=== PATIENT | female | born 1965 | race Caucasian/White ===

== ENCOUNTER → 2018-11-09 | Outpatient (CLI) | payer BC ==
--- NOTE | 2018-11-09 18:51 | Diagnostic Imaging Report ---
INDICATION: Right knee pain, twisted right knee 3 weeks ago. TECHNIQUE: 3 views of the right knee. CORRELATION STUDY: None FINDINGS: No acute bony abnormality. There is however rather markedly advanced degenerative change about the knee. This includes joint space narrowing with marginal osteophyte formation particularly laterally. Moderate severity chondrocalcinosis is also present. The articular surfaces appear to be fairly smooth. Mild narrowing of the patellofemoral compartment. Suprapatellar joint effusion appears to be present. Soft tissues are otherwise unremarkable. IMPRESSION: 1. Negative for acute bony abnormality of the knee. Advanced degenerative change about the right knee. This includes significant joint space narrowing with marginal osteophyte formation. If further assessment for intrinsic abnormality of the knee, MRI would be recommended. Dictated by: Dictated on workstation # [id number]
== END ==
LOC: RAD 15:11
PROVIDERS: ATTEND Nurse Practitioner
DX: M17.11 Unilateral primary osteoarthritis, right knee (principal); M25.761 Osteophyte, right knee
CPT/HCPCS: 73562

== ENCOUNTER 2020-10-13 05:54 | Outpatient (CLI) | payer BC ==
[~2020-10-13] VITALS: Ht 170.2 cm; Wt 152.9 kg
[2020-10-13] MEDS ORDERED: PRED10TA22 PO (14:37)
[2020-10-13] MEDS ORDERED: ATOR10TA66 PO (14:37)
[2020-10-13] MEDS ORDERED: METF-397 PO (14:37)
[2020-10-13] MEDS ORDERED: GABA-486 PO (14:37)
[2020-10-13] MEDS ORDERED: FLUT15.845 NS (14:37)
== END 2020-10-14 07:32 | disposition home or self-care (01) ==
LOC: PREOP 05:54
PROVIDERS: ATTEND Surgery
DX: Z01.818 Encounter for other preprocedural examination (principal)

== ENCOUNTER 2020-10-20 09:53 | Day surgery (SDC) | payer BC ==
[~2020-10-20] VITALS: Ht 170.2 cm; Wt 152.9 kg
[~2020-10-20 09:53] MED LIST: ATOR10TA66 PO; FLUT15.845 NS; GABA-486 PO; METF-397 PO; PRED10TA22 PO
[2020-10-20] MEDS ORDERED: LACTATED RINGERS 1,000 ML IV ONE (10:09)
[2020-10-20 10:15] VITALS: BP 118/85
[2020-10-20] MEDS ORDERED: LACTATED RINGERS 1,000 ML IV STA (10:17)
--- NOTE | 2020-10-20 10:21 | Progress Note-Pre Operative ---
Pre-Operative Progress Note H&P Reviewed The H&P was reviewed, patient examined and no changes noted. Time Seen by Provider: 10:20 Date H&P Reviewed: October 20, 2020 Time H&P Reviewed: 10:20 Pre-Operative Diagnosis: + CologCHADD Iverson DO October 20, 2020 10:21
[2020-10-20] MEDS ORDERED: PROPOFOL INJECTION 50 ML IV ONE (10:48)
[2020-10-20] MEDS ORDERED: proPOfol 200 MG/20 ML (DIPRIVAN) VIAL IV ONE (11:20)
[2020-10-20 11:35] VITALS: BP 121/69
[2020-10-20 11:40] VITALS: BP 123/58
--- NOTE | 2020-10-20 11:41 | Anesthesia-General Post-Op ---
MAC Patient Condition Mental Status/LOC: Same as Preop Cardiovascular: Satisfactory Nausea/Vomiting: Absent Respiratory: Satisfactory Pain: Controlled Complications: Absent Post Op Complications Complications None Follow Up Care/Instructions Patient Instructions None needed. Anesthesiology Discharge Order Discharge Order Patient is doing well, no complaints, stable vital signs, no apparent adverse anesthesia problems. No complications reported per nursing. SHAGUFTA ORNELAS CRNA October 20, 2020 11:41
[2020-10-20 11:45] VITALS: BP 123/58
[2020-10-20 12:16] VITALS: BP 130/62
--- NOTE | 2020-10-20 14:43 | Progress Note-Post Operative ---
Post-Operative Progess Note Surgeon (s)/Pleasure Craft Sailor (s) Surgeon CHADD ALBARRAN DO Pleasure Craft Sailor: none Pre-Operative Diagnosis + Cologuard Post-Operative Diagnosis Polyps int hemorrhoids Procedure & Operative Findings Date of Procedure 10/20/20 Procedure Performed/Findings Colon with snare Anesthesia Type IV sedation by DIAMOND BROKER Estimated Blood Loss Estimated blood loss (mL): scant Specimens/Packing Specimens Removed cecal polyp desc colon polyp x 5 Sigmoid polyp rectal polyps CHADD ALBARRAN DO October 20, 2020 14:43
--- NOTE | 2020-10-21 15:53 | OPERATIVE REPORT ---
DATE OF SERVICE: 10/20/2020 PREOPERATIVE DIAGNOSIS: Positive Cologuard. POSTOPERATIVE DIAGNOSES: Multiple colon polyps as well as internal hemorrhoids. PROCEDURE: Colonoscopy with snare polypectomy. SURGEON: Abraham Mathew DO GYMNASTICS COACH OR INSTRUCTOR: None. ANESTHESIA: IV sedation by the HIGHWAY ADMINISTRATIVE ENGINEER. SPECIMEN: Cecal polyp, descending colon polyp x5, sigmoid polyp and questionable rectal polyp. BLOOD LOSS: Scant. FLUIDS: Per anesthesia. POSTOPERATIVE CONDITION: Stable. INDICATION FOR PROCEDURE: The patient is a 55-year-old female, who had a positive Cologuard and needed a workup. FINDINGS: The patient had multiple polyps removed by hot snare and sent to pathology. PROCEDURE NOTE: After informed consent was obtained, the patient was brought to the endoscopy suite, placed in bed in left lateral decubitus position. She was administered IV sedation by the HIGHWAY ADMINISTRATIVE ENGINEER who monitored her vitals the entire time, heart rate, blood pressure and pulse ox and the scope was inserted, pushed all the way into the cecum about 150 cm in able to take a picture of appendiceal orifice, noted some polyps in the way in, elected removal on the way out, found one just outside the ileocecal valve and the cecal cap and did a snare polypectomy of this and then continued up insufflated looking circumferentially at the stewart looking the cecum, up the ascending colon to the hepatic flexure, then down the transverse colon, splenic flexure, into the descending colon. In the descending colon formal found multiple polyps, I elected to do snare polypectomy was about at least 4 or 5 of these. Continued down, found another 1 or 2 sigmoid polyps and then a rectal polyp and then retroflexed in the rectal vault, saw some minimal internal hemorrhoids, took a picture of this and then removed the scope. The patient tolerated the procedure, recovered in endoscopy suite. Job ID: [id number] DocumentID: [id number] Dictated Date: 10/21/2020 09:39:22 Master In Chancery Date: 10/21/2020 15:52:21 Dictated By: ABRAHAM MATHEW DO
== END 2020-10-20 12:20 | disposition home or self-care (01) ==
LOC: ENDO 09:53
PROVIDERS: ATTEND Surgery
DX: D12.4 Benign neoplasm of descending colon (principal); D12.0 Benign neoplasm of cecum; K63.5 Polyp of colon; K62.1 Rectal polyp; K64.8 Other hemorrhoids; R19.5 Other fecal abnormalities; E78.5 Hyperlipidemia, unspecified; J45.909 Unspecified asthma, uncomplicated; E66.01 Morbid (severe) obesity due to excess calories; F17.210 Nicotine dependence, cigarettes, uncomplicated; Z79.899 Other long term (current) drug therapy; Z79.84 Long term (current) use of oral hypoglycemic drugs; Z82.49 Family history of ischemic heart disease and other diseases of the circulatory system; Z90.710 Acquired absence of both cervix and uterus; Z90.49 Acquired absence of other specified parts of digestive tract; Z68.43 Body mass index [BMI] 50.0-59.9, adult; Z79.891 Long term (current) use of opiate analgesic; Z83.6 Family history of other diseases of the respiratory system
CPT/HCPCS: 88305

== ENCOUNTER → 2021-02-23 | Outpatient (CLI) | payer BC ==
--- NOTE | 2021-02-23 09:28 | Diagnostic Imaging Report ---
EXAMINATION: Left knee radiographs, 3 views. COMPARISON: None. HISTORY: 56-year-old female, left knee pain. FINDINGS: There is severe medial and patellofemoral compartment joint space loss. There is a moderate to large knee joint effusion. There is no identified acute fracture. There is no cortical or aggressive bone destruction. There is no radiopaque foreign body. IMPRESSION: 1. Severe medial and patellofemoral compartment arthritis with moderate to large knee joint effusion. Dictated by: Dictated on workstation # [id number]
== END ==
LOC: RAD FS 08:58
PROVIDERS: ATTEND Nurse Practitioner
DX: M17.12 Unilateral primary osteoarthritis, left knee (principal); M25.462 Effusion, left knee
CPT/HCPCS: 73562